=== PATIENT | male | born 1980 | race African-American/Black ===

== ENCOUNTER 2016-10-13 09:32 | Emergency (ER) | payer SELFPAY ==
[~2016-10-13] VITALS: Ht 172.7 cm; Wt 68.2 kg
[~2016-10-13 09:32] MED LIST: ANTIBIOTIC PO; PAIN MED PO
[2016-10-13] MEDS ORDERED: KETOROLAC TROMETHAMINE 60 MG/2 ML VIAL IM ONE (10:30)
[2016-10-13 12:02] VITALS: BP 122/79
[2016-10-13] MEDS ORDERED: BACITRACIN 0.9 GM PACKET OINTMENT TP ONE (12:30)
== END 2016-10-13 12:34 | disposition home or self-care (01) ==
LOC: EMS 09:34
DX: S62.234A Other nondisplaced fracture of base of first metacarpal bone, right hand, initial encounter for closed fracture (principal); S80.212A Abrasion, left knee, initial encounter; V19.88XA Pedal cyclist (driver) (passenger) injured in other specified transport accidents, initial encounter; Y93.55 Activity, bike riding; Y92.89 Other specified places as the place of occurrence of the external cause; Y99.8 Other external cause status; F12.90 Cannabis use, unspecified, uncomplicated
CPT/HCPCS: 29125; 73130; 96372; 99284; J1885

== ENCOUNTER 2016-11-14 10:21 | Emergency (ER) | payer SELFPAY ==
[~2016-11-14] VITALS: Ht 172.7 cm; Wt 72.7 kg
[2016-11-14 13:43] VITALS: BP 124/71
== END 2016-11-14 13:45 | disposition home or self-care (01) ==
LOC: EMS 10:22
DX: A63.0 Anogenital (venereal) warts (principal); F12.90 Cannabis use, unspecified, uncomplicated
CPT/HCPCS: 99283

== ENCOUNTER 2016-11-23 11:11 | Emergency (ER) | payer MEDICAID ==
[~2016-11-23] VITALS: Ht 175.3 cm; Wt 70.5 kg
[2016-11-23] MEDS ORDERED: DiphenhydrAMINE HCL 25 MG CAPSULE PO ONE (12:30)
[2016-11-23] MEDS ORDERED: PredniSONE 20 MG TABLET PO ONE (13:00)
[2016-11-23] MEDS ORDERED: BACITRACIN 0.9 GM PACKET OINTMENT TP ONE (13:00)
[2016-11-23 13:03] VITALS: BP 117/72
== END 2016-11-23 13:27 | disposition home or self-care (01) ==
LOC: EMS 11:13
DX: H60.11 Cellulitis of right external ear (principal); L25.9 Unspecified contact dermatitis, unspecified cause; F12.90 Cannabis use, unspecified, uncomplicated
CPT/HCPCS: 99284; J7512

== ENCOUNTER 2016-12-10 16:30 | Emergency (ER) | payer SELFPAY ==
[~2016-12-10] VITALS: Ht 175.3 cm; Wt 70.5 kg
[2016-12-10] MEDS ORDERED: DEXAMETHASONE SOD PHOS 4 MG/ML VIAL IM ONE (17:15)
[2016-12-10 18:00] VITALS: BP 132/74
== END 2016-12-10 19:06 | disposition left against medical advice (07) ==
LOC: EMS 16:32
DX: L23.9 Allergic contact dermatitis, unspecified cause (principal); F12.10 Cannabis abuse, uncomplicated
CPT/HCPCS: 96372; 99283; J1100

== ENCOUNTER 2016-12-19 11:24 | Emergency (ER) | payer SELFPAY ==
[~2016-12-19] VITALS: Ht 172.7 cm; Wt 70.9 kg
[2016-12-19 11:35] VITALS: BP 105/70
== END 2016-12-19 15:31 | disposition left against medical advice (07) ==
LOC: EMS 11:28
DX: R21 Rash and other nonspecific skin eruption (principal); Z53.21 Procedure and treatment not carried out due to patient leaving prior to being seen by health care provider

== ENCOUNTER 2016-12-20 08:54 | Emergency (ER) | payer SELFPAY ==
[~2016-12-20] VITALS: Ht 172.7 cm; Wt 72.5 kg
[2016-12-20 08:56] VITALS: BP 110/71
== END 2016-12-20 09:30 | disposition home or self-care (01) ==
LOC: EMS 09:02
DX: L25.9 Unspecified contact dermatitis, unspecified cause (principal); F12.90 Cannabis use, unspecified, uncomplicated
CPT/HCPCS: 99283

== ENCOUNTER 2017-06-13 11:58 | Emergency (ER) | payer SELFPAY ==
[~2017-06-13] VITALS: Ht 162.6 cm; Wt 72.7 kg
[2017-06-13 12:03] VITALS: BP 121/72
[2017-06-13] MEDS ORDERED: PredniSONE 20 MG TABLET PO ONE (12:45)
[2017-06-13] MEDS ORDERED: DiphenhydrAMINE HCL 25 MG CAPSULE PO ONE (12:45)
== END 2017-06-13 13:05 | disposition home or self-care (01) ==
LOC: EMS 12:00
DX: L25.9 Unspecified contact dermatitis, unspecified cause (principal); F17.210 Nicotine dependence, cigarettes, uncomplicated
CPT/HCPCS: 99283; J7512

== ENCOUNTER 2017-07-10 15:26 | Emergency (ER) | payer SELFPAY ==
[~2017-07-10] VITALS: Ht 175.3 cm; Wt 64.5 kg
[2017-07-10] MEDS ORDERED: SODIUM CHLORIDE 0.9% 1,000 ML IV ONE (16:00)
[2017-07-10] MEDS ORDERED: KETOROLAC TROMETHAMINE 30 MG/ML VIAL IVP ONE (16:00)
[2017-07-10] MEDS ORDERED: ONDANSETRON HCL 4 MG/2 ML VIAL IVP ONE (16:00)
[2017-07-10 16:17] LABS: BASOPHILS % (AUTO) 0.3 % (0.0-2.0); EOSINOPHILS % (AUTO) 0.4 % (1.0-6.0); HEMATOCRIT 39.6 % (41-53); HEMOGLOBIN 13.2 g/dL (13.5-17.5); LYMPHOCYTES # (AUTO) 2.4 K/uL (1.0-4.8); LYMPHOCYTES % (AUTO) 17.9 % (22.0-44.0); MEAN CORPUSCULAR HEMOGLOBIN 34.2 pg (26.0-34.0); MEAN CORPUSCULAR HGB CONC 33.3 G/dL (31.0-37.0); MEAN CORPUSCULAR VOLUME 103 fL (80-100); MONOCYTES # (AUTO) 0.9 K/uL (0.1-1.0); NEUTROPHILS # (AUTO) 9.9 K/uL (1.8-7.7); NEUTROPHILS % (AUTO) 74.4 % (40.0-70.0); PLATELET COUNT (AUTO) 230 K/uL (150-450); RED BLOOD CELL COUNT(AUTO) 3.85 MIL/uL (4.50-5.90); RED CELL DISTRIBUTION WIDTH 13.5 % (11.5-14.5); WHITE BLOOD COUNT (AUTO) 13.3 K/uL (4.5-11.0)
[2017-07-10 16:30] LABS: ANION GAP 9 mmol/L (8-16); CALCIUM, TOTAL 9.1 mg/dL (8.8-10.5); CARBON DIOXIDE 29 mmol/L (22-29); CHLORIDE 100 mmol/L (98-107); CREATININE 1.01 mg/dL (0.60-1.30); GLOMERULAR FILTR. RATE CALC > 60 mL/min (>60); POTASSIUM 3.9 mmol/L (3.5-5.1); SODIUM SERUM 138 mmol/L (136-145); UREA NITROGEN, BLOOD 12 mg/dL (7-18)
[2017-07-10 16:36] LABS: ALANINE AMINOTRANSFERASE 48 U/L (12-78); ALBUMIN 4.1 g/dL (3.4-5.0); ASPARTATE AMINOTRANSFERASE 32 U/L (15-37); BILIRUBIN,TOTAL 0.8 mg/dL (0.1-1.0); TOTAL PROTEIN, SERUM 7.4 g/dL (6.4-8.2)
[2017-07-10 17:39] VITALS: BP 110/68
[2017-07-10 18:55] LABS: RBC MORPHOLOGY COMMENT ABNORMAL RBC MORPH
== END 2017-07-10 17:52 | disposition home or self-care (01) ==
LOC: EMS 15:28
DX: R11.2 Nausea with vomiting, unspecified (principal); R10.13 Epigastric pain; F17.210 Nicotine dependence, cigarettes, uncomplicated
CPT/HCPCS: 36415; 80053; 80307; 83690; 85025; 96361; 96374; 96375; 99284; J1885; J2405; J7030

== ENCOUNTER 2017-07-13 14:23 | Emergency (ER) | payer SELFPAY ==
[~2017-07-13] VITALS: Ht 175.3 cm; Wt 68.2 kg
[2017-07-13 15:43] VITALS: BP 115/72
== END 2017-07-13 15:55 | disposition home or self-care (01) ==
LOC: EMS 14:25
DX: B35.6 Tinea cruris (principal); F17.210 Nicotine dependence, cigarettes, uncomplicated
CPT/HCPCS: 99283